=== PATIENT | female | born 1965 | race Hispanic/Latino ===

== ENCOUNTER 2016-10-26 15:12 | Emergency (ER) | payer MEDICAID, OTHER ==
[~2016-10-26] VITALS: Ht 144.8 cm; Wt 79.4 kg
[~2016-10-26 15:12] MED LIST: AC500T; CHOLESTOFF; GABA-488 PO; HYDR-3714 PO; HYDR1TAB PO; MELO-198 PO; METH4TAB PO; METH5TAB41 PO; NAPR-243 PO; TRAMADOL; TRM50T PO
--- OUTSIDE RECORDS SUMMARY | 2016-10-26 15:18 | XMS REPORT | Continuity of Care Document ---
Author Author Interface Organization Interface Address Unknown Phone Unavailable Problems Problem Status Onset Date Classification Date Reported Comments Source Medications Medication Details Route Status Patient Instructions Ordering Provider Order Date Source Allergies, Adverse Reactions, Alerts Substance Category Reaction Severity Reaction type Status Date Reported Comments Source NKA Datatype(AL1.2)-Drug Allergy Active 08/10/2009 [facility] Immunizations Immunization Date Given Site Status Last Updated Comments Source Results Order Name Results Value Reference Range Date Interpretation Comments Source Vital Signs Vital Sign Value Date Comments Source Encounters Location Location Details Encounter Type Encounter Number Reason For Visit Attending Provider ADM Date DC Date Status [id number] 08/10/2009 Active [facility] Procedures Procedure Code Date Perfomer Comments Source
[2016-10-26] MEDS ORDERED: ADAL10SY SQ (15:59)
[2016-10-26] MEDS ORDERED: TETRACAINE 0.5% OPHTH SOLN 5 ML BTL OP ONE (16:45)
--- NOTE | 2016-10-26 16:54 | Diagnostic Imaging Report ---
INDICATION: Back pain post fall. TECHNIQUE: AP and lateral views of the lumbar spine are obtained. FINDINGS: The lumbar vertebrae are normal in height and alignment. There is no fracture or subluxation. There is no significant disc space narrowing. IMPRESSION: No acute bony abnormality in the lumbar spine. Dictated by: Dictated on workstation # [id number]
[2016-10-26 17:05] LABS: BILIRUBIN,URINE NEGATIVE (NEGATIVE); KETONES,URINE NEGATIVE (NEGATIVE); LEUKOCYTE ESTERASE ,URINE NEGATIVE (NEGATIVE); NITRITE,URINE NEGATIVE (NEGATIVE); PH,URINE 7 (5-9); PROTEIN,URINE NEGATIVE (NEGATIVE); UROBILINOGEN,URINE NORMAL (NORMAL)
--- NOTE | 2016-10-26 17:08 | ED Back Pain ---
General Chief Complaint: Back Problems Stated Complaint: KIDNEY,BACK PAIN Nursing Triage Note: PT CO OF BACK PAIN FROM FALL APPROX 3 WEEKS AGO LOW BACK Nursing Sepsis Screen: No Definite Risk History of Present Illness Time Seen by Provider: 16:30 Initial Comments Initial evaluation for low back pain. Starts in the lower lumbar region and into the SI joints bilaterally. She denies any falls reports it's been present for approximately 3 week. In addition she has bilateral eye pain, with some varying changes in visual acuity. She has not seen an rubber goods inspector tester for many years. She does not wear glasses. She lives in [place], and is here visiting her daughter. Location: Lumbar Spine Timing/Duration: Changing Over Time Severity: Mild (5/10) Pain/Injury Location: Back Modifying Factors: Improves With Immobilization, Improves With Rest Associated Symptoms: muscle spasmsNo numbness in legs/feet, No tingling in legs/feet, No sensory/motor loss, lower back painNo loss of bladder control, No loss of bowel control Allergies and Home Medications Allergies Coded Allergies: No Known Drug Allergies (Unverified , 04/05/09) Home Medications Adalimumab 10 Mg/0.2 Ml Syringekit 10 MG SQ Q 2 WEEKS (Reported) Naproxen 500 Mg Tablet #40 500 MG PO BID WITH MEALS PRN PRN PAIN Prescribed by: SHELTON ALVARENGA on 10/26/16 1736 Tramadol HCl 50 Mg Tablet #12 50 MG PO Q8H Prescribed by: SHELTON ALVARENGA on 10/26/16 1715 Constitutional: no symptoms reported see HPI EENTM: blurred vision eye pain see HPINo double vision, No tearing, No vision loss Respiratory: no symptoms reported see HPI Cardiovascular: no symptoms reported see HPI Gastrointestinal: no symptoms reported see HPI Genitourinary: no symptoms reported see HPI : No Musculoskeletal: see HPI back pain Skin: no symptoms reported see HPI Psychiatric/Neurological: No Symptoms Reported See HPI All Other Systems Reviewed Negative Unless Noted: Yes Past Esvgsyn-Xgbfmn-Zkhxbh Hx Patient Social History Alcohol Use: Denies Use Recreational Drug Use: No Smoking Status: Never a Smoker Recent Foreign Travel: No Contact w/Someone Who Travel: No Recent Infectious Disease Expo: No Recent Hopitalizations: No Surgeries HX Surgeries: Yes Surgeries: Section Respiratory Hx Respiratory Disorders: No Cardiovascular Hx Cardiac Disorders: No Neurological Hx Neurological Disorders: No Genitourinary Hx Genitourinary Disorders: No Gastrointestinal Hx Gastrointestinal Disorders: No Musculoskeletal Hx Musculoskeletal Disorders: Yes Musculoskeletal Disorders: Arthritis Endocrine Hx Endocrine Disorders: No Reviewed Nursing Assessment Reviewed/Agree w Nursing PMH: Yes Physical Exam Vital Signs Vital Sign - Last 12Hours 10/26/16 15:45 Temp 97.9 Pulse 81 Resp 18 B/P 101/62 Pulse Ox 97 Capillary Refill : Less Than 3 Seconds General Appearance: No Apparent Distress WD/WN Other (no headache) HEENT: TMs Normal Normal ENT Inspection Pharynx Normal PhotophobiaNo Scleral Icterus (L), No Scleral Icterus (R) Neck: Full Range of Motion Normal Inspection Non Tender Supple Cardiovascular: Regular Rate, Rhythm No Edema No JVD No Murmur Respiratory: Chest Non Tender Lungs Clear Gastrointestinal: Normal Bowel Sounds No Organomegaly No Pulsatile Mass Non Tender Soft Back: Normal Inspection No CVA Tenderness Decreased Range of Motion Muscle Spasm Other (power L4 to S1 V/V, neurovascular status intact bilateral lower extremities) Extremity: Normal Capillary Refill Normal Inspection Neurologic/Psychiatric: Alert Oriented x3 No Motor/Sensory Deficits Normal Mood/Affect bed laster II-XII Norm as Tested (grossly intact) Skin: Normal Color Warm/Dry Lymphatic: No Adenopathy Progress/Results/Core Measures Results/Orders Lab Results Laboratory Tests Test 10/26/16 16:50 Range/Units Ur Tricyclic Antidepressants Screen NEGATIVE NEGATIVE Urine Amphetamines Screen NEGATIVE NEGATIVE Urine Bacteria NEGATIVE /HPF Urine Barbiturates Screen NEGATIVE NEGATIVE Urine Benzodiazepines Screen NEGATIVE NEGATIVE Urine Bilirubin NEGATIVE NEGATIVE Urine Cannabinoids Screen NEGATIVE NEGATIVE Urine Casts NONE /LPF Urine Clarity CLEAR Urine Cocaine Screen NEGATIVE NEGATIVE Urine Color YELLOW Urine Crystals NONE /LPF Urine Culture Indicated NO Urine Glucose (UA) NEGATIVE NEGATIVE Urine Ketones NEGATIVE NEGATIVE Urine Leukocyte Esterase NEGATIVE NEGATIVE Urine Methadone Screen NEGATIVE NEGATIVE Urine Methamphetamines Screen NEGATIVE NEGATIVE Urine Mucus NEGATIVE /LPF Urine Nitrite NEGATIVE NEGATIVE Urine Opiates Screen NEGATIVE NEGATIVE Urine Oxycodone Screen NEGATIVE NEGATIVE Urine Phencyclidine Screen NEGATIVE NEGATIVE Urine Propoxyphene Screen NEGATIVE NEGATIVE Urine Protein NEGATIVE NEGATIVE Urine RBC RARE /HPF Urine RBC (Auto) NEGATIVE NEGATIVE Urine Specific [place] 1.010 L 1.016-1.022 Urine Squamous Epithelial Cells 5-10 /HPF Urine Urobilinogen NORMAL NORMAL MG/DL Urine WBC RARE /HPF Urine pH 7 5-9 My Orders Orders-SHELTON ALVARENGA PREDATORY HUNTER Tetracaine 0.5% Ophth Soln (Tetravisc 0. (10/26/16 16:45) Drug Screen Stat (Urine) (10/26/16 16:54) Ua Culture If Indicated (10/26/16 16:54) Tramadol Tablet (Ultram Tablet) (10/26/16 17:13) Medications Given in ED Current Medications Medications Dose Ordered Sig/Bret Route Start Time Stop Time Status Last Admin Dose Admin Tetracaine HCl 1 OR 2 DROPS INTO AFFEC... ONCE ONCE OP 10/26/16 16:45 10/26/16 16:46 DC 10/26/16 16:46 2 ML Vital Signs/I&O Vital Sign - Last 12Hours 10/26/16 10/26/16 15:45 17:45 Temp 97.9 Pulse 81 81 Resp 18 18 B/P 101/62 Pulse Ox 97 97 Blood Pressure Mean: 75 Progress Note : Time: 16:30 Progress Note Instilled Tetracaine OU, approximately 10 min later: [place] Pen IOP OD 29 and OS 27. Discussed the findings of her IOP and stressed the importance of following up with Dr. Parks tomorrow. UDS and UA negative. Diagnostic Imaging Diagonstic Imaging: Xray Plain Films/CT/US/NM/MRI: other (L spine) Comments NAME: ARACELY BALDERAS [facility] REC#: [id number] PT STATUS: REG ER : 1965 PHYSICIAN: LISSETTE RICHARDS MD ADMIT DATE: 10/26/16/ER Draft Date of Exam:10/26/16 LUMBAR SPINE - 2-3 VIEWS INDICATION: Back pain post fall. TECHNIQUE: AP and lateral views of the lumbar spine are obtained. FINDINGS: The lumbar vertebrae are normal in height and alignment. There is no fracture or subluxation. There is no significant disc space narrowing. IMPRESSION: No acute bony abnormality in the lumbar spine. Dictated on workstation # [id number] Dict: 10/26/161649 Trans: 10/26/161653 [id number] Interpreted by: KEENAN MELENDREZ MD Electronically signed by: Reviewed: Reviewed by Me Departure Impression Impression: Primary Impression: Back pain Qualified Code: M54.5 - Low back pain Additional Impression: Glaucoma Qualified Code: H40.10X1 - Unspecified open-angle glaucoma, mild stage Disposition: HOME, SELF-CARE Condition: Stable Departure-Patient Inst. Decision time for Depature: 17:10 Referrals: NO,LOCAL PHYSICIAN (PCP/Family) Primary Care Physician Patient Instructions: Glaucoma (DC), Low Back Pain (DC) Add. Discharge Instructions: All discharge instructions reviewed with patient and/or family. Voiced understanding. See Dr. Parks at 11:15 Sun 3 [address], Return to emergency room for increased eye pain, changes in vision, or new symptoms. Scripts Naproxen (Naprosyn)500 Mg [id number] Mg PO BID WITH MEALS PRN PAIN #40 TAB Ref 0 Prov:SHELTON ALVARENGA 10/26/16 Tramadol HCl 50 Mg [id number] Mg PO Q8H Pain #12 TAB Ref 0 Prov:SHELTON ALVARENGA 10/26/16 Copy Copies To 1: LOREN GRIGGS OD, AMY ARNP Oct 26, 2016 17:08
[2016-10-26] MEDS ORDERED: TRAM50TA2 PO (17:15)
[2016-10-26 17:20] LABS: WBC,URINE RARE /HPF
[2016-10-26] MEDS ORDERED: NAPR500T PO (17:36)
[2016-10-26 17:45] VITALS: BP 101/62
== END 2016-10-26 17:45 | disposition home or self-care (01) ==
LOC: EDUNIT# 15:12 → ER 15:14
DX: M54.5 Low back pain (principal); H40.9 Unspecified glaucoma
CPT/HCPCS: 72100; 80306; 81000; 99282

== ENCOUNTER 2020-08-09 13:42 | Emergency (ER) | payer MEDICAID ==
[~2020-08-09] VITALS: Ht 162.5 cm; Wt 88.6 kg
[~2020-08-09 13:42] MED LIST changes: +ADAL10SY SQ; +NAPR-1071 PO
--- NOTE | 2020-08-09 14:13 | ED General ---
General Chief Complaint: General Problems/Pain Stated Complaint: LEG AND HAND PAIN Source of Information: Patient Exam Limitations: No Limitations History of Present Illness Date Seen by Provider: Aug 09, 2020 Time Seen by Provider: 14:00 Initial Comments To ER by EMS from home with reports of right wrist right shoulder left ribs and left knee pain. This pain has been chronic but worse than usual for about 3 days. [facility] and takes some sort of cream and meloxicam. She states is not helping much. States her pain is intolerable.States that her right wrist swells up sometimes but is not particularly swollen today. Timing/Duration: 1-2 Days Severity: Moderate Associated Systoms: No Cough, No Headaches, No Malaise, No Nausea/Vomiting Allergies and Home Medications Allergies Coded Allergies: No Known Drug Allergies (Unverified , 04/05/09) Home Medications Adalimumab 10 Mg/0.2 Ml Syringekit, 10 MG SQ Q 2 WEEKS, (Reported) Naproxen 500 Mg Tablet, 500 MG PO BID WITH MEALS PRN for PAIN Prescribed by: SHELTON ALVARENGA on 10/26/161735 Tramadol HCl 50 Mg Tablet, 50 MG PO Q8H Prescribed by: SHELTON ALVARENGA on 10/26/16 1715 Patient Home Medication List Home Medication List Reviewed: Yes Review of Systems Review of Systems Constitutional: see HPI; No chills, No fever EENTM: see HPI Respiratory: no symptoms reported Cardiovascular: no symptoms reported Genitourinary: no symptoms reported Musculoskeletal: no symptoms reported Skin: see HPI Psychiatric/Neurological: No Symptoms Reported Hematologic/Lymphatic: No Symptoms Reported Past Zylanst-Bxflub-Hfbduh Hx Patient Social History Recent Hopitalizations: No Past Medical History Section Arthritis Physical Exam Vital Signs Vital Signs - First Documented 08/09/20 13:46 Temp 36.8 Pulse 100 Resp 18 B/P (MAP) 125/95 (105) Pulse Ox 94 O2 Delivery Room Air Capillary Refill : Height, Weight, BMI Height: 4'9" Weight: 175lbs. oz. 79.878651gr; BMI Method:Stated General Appearance: No Apparent Distress, WD/WN, Other (Tearful) Eyes: Bilateral Eye Normal Inspection, Bilateral Eye PERRL, Bilateral Eye EOMI Respiratory: No Accessory Muscle Use, No Respiratory Distress Cardiovascular: Regular Rate, Rhythm, Normal Peripheral Pulses Gastrointestinal: Normal Bowel Sounds, Non Tender, Soft Extremity: Normal Capillary Refill, Normal Inspection Neurologic/Psychiatric: Alert, Oriented x3 Skin: Normal Color, Warm/Dry Progress/Results/Core Measures Suspected Sepsis SIRS Temperature: Pulse: Respiratory Rate: Laboratory Tests 08/09/20 14:02: White Blood Count 8.0 Blood Pressure / Mean: Laboratory Tests 08/09/20 14:02: Creatinine 0.62, Platelet Count 309, Total Bilirubin 0.5 Results/Orders Lab Results Laboratory Tests Test 08/09/20 14:02 Range/Units White Blood Count 8.0 4.3-11.0 10^3/uL Red Blood Count 4.73 3.80-5.11 10^6/uL Hemoglobin 13.5 11.5-16.0 g/dL Hematocrit 44 35-52 % Mean Corpuscular Volume 92 80-99 fL Mean Corpuscular Hemoglobin 29 25-34 pg Mean Corpuscular Hemoglobin Concent 31 L 32-36 g/dL Red Cell Distribution Width 15.9 H 10.0-14.5 % Platelet Count 309 130-400 10^3/uL Mean Platelet Volume 10.2 9.0-12.2 fL Immature Granulocyte % (Auto) 1 % Neutrophils (%) (Auto) 80 H 42-75 % Lymphocytes (%) (Auto) 15 12-44 % Monocytes (%) (Auto) 3 0-12 % Eosinophils (%) (Auto) 1 0-10 % Basophils (%) (Auto) 0 0-10 % Neutrophils # (Auto) 6.4 1.8-7.8 10^3/uL Lymphocytes # (Auto) 1.2 1.0-4.0 10^3/uL Monocytes # (Auto) 0.2 0.0-1.0 10^3/uL Eosinophils # (Auto) 0.1 0.0-0.3 10^3/uL Basophils # (Auto) 0.0 0.0-0.1 10^3/uL Immature Granulocyte # (Auto) 0.1 0.0-0.1 10^3/uL Erythrocyte Sedimentation Rate 42 H 0-30 MM/HR Sodium Level 139 135-145 MMOL/L Potassium Level 3.7 3.6-5.0 MMOL/L Chloride Level 104 98-107 MMOL/L Carbon Dioxide Level 25 21-32 MMOL/L Anion Gap 10 5-14 MMOL/L Blood Urea Nitrogen 7 7-18 MG/DL Creatinine 0.62 0.60-1.30 MG/DL Estimat Glomerular Filtration Rate > 60 BUN/Creatinine Ratio 11 Glucose Level 119 H 70-105 MG/DL Calcium Level 8.4 L 8.5-10.1 MG/DL Corrected Calcium 9.0 8.5-10.1 MG/DL Total Bilirubin 0.5 0.1-1.0 MG/DL Aspartate Amino Transf (AST/SGOT) 16 5-34 U/L Alanine Aminotransferase (ALT/SGPT) 14 0-55 U/L Alkaline Phosphatase 86 40-136 U/L C-Reactive Protein High Sensitivity 7.70 H 0.00-0.50 MG/DL Total Protein 6.8 6.4-8.2 GM/DL Albumin 3.2 3.2-4.5 GM/DL My Orders Orders - SIVA LA APRN Wrist, Right, 3 Views Or More (08/09/20 14:07) Shoulder, Right, 3 Views (08/09/20 14:07) Chest 1 View, Ap/Pa Only (08/09/20 14:07) Knee, Left, 3 Views (08/09/20 14:07) Erythrocyte Sedimentation Rate (08/09/20 14:07) Hs C Reactive Protein (08/09/20 14:07) Cbc With Automated Diff (08/09/20 14:07) Comprehensive Metabolic Panel (08/09/20 14:07) Anti-Nuclear Ab (Deepail) Analyzer (08/09/20 14:07) Ed Iv/Invasive Line Start (08/09/20 14:07) Fentanyl Injection (Sublimaze Injection (08/09/20 14:15) Ketorolac Injection (Toradol Injection) (08/09/20 14:15) Medications Given in ED Current Medications Medications Dose Ordered Sig/Bret Route Start Time Stop Time Status Last Admin Dose Admin Fentanyl Citrate 50 mcg ONCE ONCE IVP 08/09/20 14:15 08/09/20 14:16 DC 08/09/20 14:48 50 MCG Ketorolac Tromethamine 15 mg ONCE ONCE IVP 08/09/20 14:15 08/09/20 14:16 DC 08/09/20 14:49 15 MG Vital Signs/I&O 08/09/20 13:46 Temp 36.8 Pulse 100 Resp 18 B/P (MAP) 125/95 (105) Pulse Ox 94 O2 Delivery Room Air Capillary Refill : Departure Impression Primary Impression: Inflammatory arthropathy Disposition: 01 HOME, SELF-CARE Condition: Stable Departure-Patient Inst. Decision time for Depature: 14:51 Referrals: NO,LOCAL PHYSICIAN (PCP/Family) Primary Care Physician Patient Instructions: NO INSTRUCTIONS GIVEN Add. Discharge Instructions: 1. Medication as directed 2. Fill your prescriptions at [facility] 3. [facility] may need to prescribe some long-term medications to help manage this pain. All discharge instructions reviewed with patient and/or family. Voiced understanding. Scripts Methylprednisolone (Methylprednisolone Dose Pack) 4 Mg Tab.ds.pk 4 MG PO UD for 6 Days, #21 PKG PER DOSE PACK INSTRUCTIONS Prov: SIVA LA APRN 08/09/20 Hydrocodone/Acetaminophen (Hydrocodone-Acetamin 5-325 mg) 1 Each Tablet 1 EACH PO Q4H PRN for PAIN-MODERATE (5-7), #20 TAB Prov: SIVA LA APRN 08/09/20 SIVA LA APRN Aug 09, 2020 14:13
[2020-08-09] MEDS ORDERED: KETOROLAC 30 MG/ML VIAL IVP ONE (14:15)
[2020-08-09] MEDS ORDERED: fentaNYL INJECTION 100 MCG/2 ML AMP IVP ONE (14:15)
[2020-08-09 14:19] LABS: BASOPHILS % (AUTO) 0 % (0-10); EOSINOPHILS # (AUTO) 0.1 10^3/uL (0.0-0.3); EOSINOPHILS % (AUTO) 1 % (0-10); HEMATOCRIT 44 % (35-52); HEMOGLOBIN 13.5 g/dL (11.5-16.0); LYMPHOCYTES # (AUTO) 1.2 10^3/uL (1.0-4.0); LYMPHOCYTES % (AUTO) 15 % (12-44); MEAN CORPUSCULAR HEMOGLOBIN 29 pg (25-34); MEAN CORPUSCULAR HGB CONC 31 g/dL (32-36); MEAN CORPUSCULAR VOLUME 92 fL (80-99); MEAN PLATELET VOLUME 10.2 fL (9.0-12.2); MONOCYTES # (AUTO) 0.2 10^3/uL (0.0-1.0); MONOCYTES % (AUTO) 3 % (0-12); NEUTROPHILS # (AUTO) 6.4 10^3/uL (1.8-7.8); NEUTROPHILS % (AUTO) 80 % (42-75); PLATELET COUNT 309 10^3/uL (130-400)
[2020-08-09 14:32] LABS: ALBUMIN 3.2 GM/DL (3.2-4.5); CHLORIDE 104 MMOL/L (98-107); POTASSIUM 3.7 MMOL/L (3.6-5.0)
[2020-08-09 14:33] LABS: SODIUM 139 MMOL/L (135-145)
[2020-08-09 14:34] LABS: CALCIUM 8.4 MG/DL (8.5-10.1)
[2020-08-09 14:35] LABS: GLUCOSE 119 MG/DL (70-105); TOTAL PROTEIN 6.8 GM/DL (6.4-8.2)
[2020-08-09 14:36] LABS: CARBON DIOXIDE 25 MMOL/L (21-32)
[2020-08-09 14:37] LABS: BILIRUBIN,TOTAL 0.5 MG/DL (0.1-1.0)
[2020-08-09 14:38] LABS: ALKALINE PHOSPHATASE 86 U/L (40-136)
[2020-08-09 14:39] LABS: CREATININE SERUM 0.62 MG/DL (0.60-1.30); GFR ESTIMATED > 60
[2020-08-09 14:40] LABS: BUN/CREATININE RATIO 11
[2020-08-09 14:42] LABS: ALANINE AMINOTRANSFERASE 14 U/L (0-55); ERYTHROCYTE SEDIMENTATION RATE 42 MM/HR (0-30)
--- NOTE | 2020-08-09 14:42 | Diagnostic Imaging Report ---
INDICATION: Right shoulder pain post injury. AP, oblique, and transscapular views the right shoulder are obtained. No fracture or acute bony abnormality is seen. The glenohumeral joint and AC joint appear unremarkable. IMPRESSION: Negative right shoulder. Dictated by: Dictated on workstation # [id number]
--- NOTE | 2020-08-09 14:43 | Diagnostic Imaging Report ---
INDICATION: Left knee pain. AP, oblique, and lateral views of the left knee are obtained. No fracture or acute bony abnormality is seen. There is a small left knee joint effusion. IMPRESSION: No fracture or acute bony abnormality. Small left knee joint effusion. Dictated by: Dictated on workstation # [id number]
--- NOTE | 2020-08-09 14:44 | Diagnostic Imaging Report ---
INDICATION: Right wrist swelling. AP, oblique, and lateral views of the right wrist are obtained. No fracture or acute bony abnormality is seen. There is joint space narrowing of the radiocarpal joint. IMPRESSION: Degenerative findings with no acute bony abnormality of the right wrist. Dictated by: Dictated on workstation # [id number]
[2020-08-09] MEDS ORDERED: METH4TAB10 PO (14:52)
[2020-08-09] MEDS ORDERED: ACHD5005 PO (14:52)
--- NOTE | 2020-08-09 14:55 | Diagnostic Imaging Report ---
INDICATION: Right-sided chest pain with inspiration FINDINGS: The lungs are clear. There is no effusion or pneumothorax. No rib fracture, deformity or bony destructive process. No failure pattern. IMPRESSION: Normal frontal chest. Dictated by: Dictated on workstation # [id number]
[2020-08-09] MEDS ORDERED: dexAMETHasone 6 MG TAB (DECADRON) PO SCH (15:00)
--- NOTE | 2020-08-09 15:38 | NUR ---
ATTEMPT TO CALL NUMBERS ON CHART NOT RIGHT NUMBERS CALLED LOGISTICIAN DEPT FOR CALL BACK NUMBER FOR THEM
--- NOTE | 2020-08-09 15:39 | NUR ---
NUMBER BY [facility] DEPT NOT WORKING.
[2020-08-09] MEDS ORDERED: HYDROcodone/APAP 5 MG/325 MG (LORTAB) TAB PO ONE (15:45)
--- NOTE | 2020-08-09 16:04 | NUR ---
PATIENT CALLED ON HER CELL PHONE INFOMRED MALE WHO ANSWERED PHONE INFORMED PATIENT WAS COMING HOME AND NEEDED TO GO TO [facility] TO GET HER MEDS VOICED THEY WOULD. MALE REPORTED DAUGHTER WAS IN JOIN
[2020-08-09 16:11] VITALS: BP 135/98
== END 2020-08-09 15:52 | disposition home or self-care (01) ==
LOC: EDUNIT# 13:42 → ER 13:44
DX: M12.831 Other specific arthropathies, not elsewhere classified, right wrist (principal); M12.811 Other specific arthropathies, not elsewhere classified, right shoulder; M12.862 Other specific arthropathies, not elsewhere classified, left knee
CPT/HCPCS: 36415; 71045; 73030; 73110; 73562; 80053; 85025; 85652; 86038; 86039; 86141

== ENCOUNTER 2020-10-26 10:56 | Emergency (ER) | payer MEDICAID ==
[~2020-10-26] VITALS: Ht 125 cm; Wt 90.7 kg
[~2020-10-26 10:56] MED LIST changes: +ACHD5005 PO; +METH4TAB10 PO
[2020-10-26] MEDS ORDERED: fentaNYL INJECTION 100 MCG/2 ML AMP IVP ONE (11:45)
[2020-10-26] MEDS ORDERED: ONDANSETRON 4 MG/2 ML (SDV) Z0FRAN IVP ONE (11:45)
[2020-10-26 11:55] LABS: BASOPHILS % (AUTO) 0 % (0-10); EOSINOPHILS % (AUTO) 0 % (0-10); HEMATOCRIT 47 % (35-52); HEMOGLOBIN 14.7 g/dL (11.5-16.0); LYMPHOCYTES % (AUTO) 15 % (12-44); MEAN CORPUSCULAR HEMOGLOBIN 29 pg (25-34); MEAN CORPUSCULAR HGB CONC 32 g/dL (32-36); MEAN CORPUSCULAR VOLUME 91 fL (80-99); MEAN PLATELET VOLUME 10.8 fL (9.0-12.2); MONOCYTES # (AUTO) 0.3 10^3/uL (0.0-1.0); MONOCYTES % (AUTO) 4 % (0-12); NEUTROPHILS # (AUTO) 5.6 10^3/uL (1.8-7.8); NEUTROPHILS % (AUTO) 80 % (42-75); PLATELET COUNT 236 10^3/uL (130-400); WHITE BLOOD COUNT 6.9 10^3/uL (4.3-11.0)
[2020-10-26 12:05] LABS: ALBUMIN 3.6 GM/DL (3.2-4.5); CHLORIDE 101 MMOL/L (98-107); POTASSIUM 3.2 MMOL/L (3.6-5.0); SODIUM 138 MMOL/L (135-145)
[2020-10-26 12:06] LABS: CALCIUM 8.5 MG/DL (8.5-10.1)
[2020-10-26 12:07] LABS: GLUCOSE 147 MG/DL (70-105)
[2020-10-26 12:08] LABS: TOTAL PROTEIN 7.3 GM/DL (6.4-8.2)
[2020-10-26 12:09] LABS: BILIRUBIN,TOTAL 0.5 MG/DL (0.1-1.0); CARBON DIOXIDE 27 MMOL/L (21-32)
[2020-10-26 12:11] LABS: ALKALINE PHOSPHATASE 127 U/L (40-136); CREATININE SERUM 0.69 MG/DL (0.60-1.30); GFR ESTIMATED > 60
[2020-10-26 12:12] LABS: BUN/CREATININE RATIO 9
[2020-10-26 12:14] LABS: ALANINE AMINOTRANSFERASE 24 U/L (0-55); MAGNESIUM 2.2 MG/DL (1.6-2.4)
[2020-10-26] MEDS ORDERED: KCL 10 MEQ TAB (MICRO K) PO ONE (12:30)
[2020-10-26 12:35] LABS: TSH (THYROID ANALYZER) 1.96 UIU/ML (0.35-4.94)
--- NOTE | 2020-10-26 13:39 | Diagnostic Imaging Report ---
PROCEDURE: CT head without contrast. TECHNIQUE: Multiple contiguous axial images were obtained through the brain without the use of intravenous contrast. Auto Exposure Controls were utilized during the CT exam to meet ALARA standards for radiation dose reduction. INDICATION: Severe headache. COMPARISON: No prior studies are available for comparison. FINDINGS: Ventricles and sulci are within normal limits. No sulcal effacement or midline shift is detected. No acute intra-axial or extra-axial hemorrhage is detected. Cisterns are patent. Visualized paranasal sinuses are clear. IMPRESSION: No acute intracranial process is detected. Dictated by: Dictated on workstation # [id number]
[2020-10-26] MEDS ORDERED: KETOROLAC 30 MG/ML VIAL IVP ONE (14:00)
[2020-10-26 14:15] LABS: ERYTHROCYTE SEDIMENTATION RATE 41 MM/HR (0-30)
--- NOTE | 2020-10-26 15:05 | ED Headache ---
General Chief Complaint: Head/Cervical Problems Stated Complaint: FROST,N/V,BODY ACHES Nursing Triage Note: Ambulatory to ED. Pt reports the worst headache of life that has been intermittent over the last two weeks. Pt reports pain is unbareable. Pt reports taking Tramadol on an empty stomach this morning and then felt nauseated. Dr. German performed neuro exam during assessment. Language line used to communicate with patient during assessment. Nursing Sepsis Screen: No Definite Risk Source: patient, vp director of finance Exam Limitations: language barrier History of Present Illness Date Seen by Provider: Oct 26, 2020 Time Seen by Provider: 11:00 Initial Comments This 55-year-old woman presents to the emergency room with primary complaint of severe headache. Was performed with the assistance of phone vp director of finance. She has had intermittent headache for about 2 weeks. She has had some mild nausea as well associated with taking a tramadol this morning on an empty stomach. She denies fever. She denies any Covid contacts. She has not had any vomiting or diarrhea. She does state this is the worst headache she has ever experienced and she is intermittently tearful. She also complains of eye discharge and intermittent blurry vision with reading. She Has history of rheumatoid arthritis. Allergies and Home Medications Allergies Coded Allergies: No Known Drug Allergies (Unverified , 04/05/09) Home Medications Adalimumab 10 Mg/0.2 Ml Syringekit, 10 MG SQ Q 2 WEEKS, (Reported) Hydrocodone/Acetaminophen 1 Each Tablet, 1 EACH PO Q4H PRN for PAIN-MODERATE (5- 7) Prescribed by: SIVA LA on 08/09/20 1454 Methylprednisolone 4 Mg Tab.ds.pk, 4 MG PO UD PER DOSE PACK INSTRUCTIONS Prescribed by: SIVA LA on 08/09/20 1452 Naproxen 500 Mg Tablet, 500 MG PO BID WITH MEALS PRN for PAIN Prescribed by: SHELTON ALVARENGA on 10/26/16 1736 Omeprazole 20 Mg Capsule.dr, 20 MG PO DAILY Prescribed by: GIGI DAVENPORT on 10/26/20 163 Ondansetron 4 Mg Tab.rapdis, 4 MG SL Q4H PRN for NAUSEA/VOMITING Prescribed by: GIGI DAVENPORT on 10/26/20 163 Tramadol HCl 50 Mg Tablet, 50 MG PO Q8H Prescribed by: SHELTON ALVARENGA on 10/26/16 1715 Patient Home Medication List Home Medication List Reviewed: Yes Review of Systems Review of Systems Constitutional: no symptoms reported Eyes: Blurred Vision Ears, Nose, Mouth, Throat: no symptoms reported Respiratory: no symptoms reported Cardiovascular: no symptoms reported Gastrointestinal: see HPI Genitourinary: no symptoms reported : No Musculoskeletal: no symptoms reported Skin: no symptoms reported Psychiatric/Neurological: See HPI Past Bbszlpb-Nqkgff-Lcefuh Hx Past Med/Social Hx: Reviewed Nursing Past Med/Soc Hx Patient Social History Alcohol Use: Denies Use 2nd Hand Smoke Exposure: No Recent Infectious Disease Expo: No Recent Hopitalizations: No Past Medical History Surgeries: Yes Section Respiratory: No Cardiac: No Neurological: No : No Gastrointestinal: No Musculoskeletal: Yes Arthritis, Rheumatoid Arthritis Endocrine: No HEENT: No Cancer: No Psychosocial: No Blood Disorders: No Physical Exam Vital Signs Vital Signs - First Documented 10/26/20 11:15 Temp 36.9 Pulse 91 Resp 20 B/P (MAP) 142/119 (127) Pulse Ox 94 O2 Delivery Room Air Capillary Refill : Less Than 3 Seconds Height, Weight, BMI Height: 4'9" Weight: 175lbs. oz. 79.839516mc; 58.00 BMI Method:Stated General Appearance: WD/WN, moderate distress HEENT: PERRL/EOMI, normal ENT inspection, TMs normal, pharynx normal Neck: normal inspection Cardiovascular: regular rate, rhythm, no edema, no murmur Respiratory: lungs clear, normal breath sounds, no respiratory distress Gastrointestinal: non tender, soft Extremities: normal inspection, no pedal edema Psychiatric: alert, oriented x 3 Crainal Nerves: normal hearing, normal speech, other (Patient has a difficulty tracking my finger with her eyes in either direction. Presumably this is due to difficulty concentrating. She also has difficulty following instructions for the [id number]-wk-erdc test but eventually performs it with satisfactory coordination. No other focal deficits were appreciated.) Coordination/Gait: normal finger to nose, normal gait Motor/Sensory: no motor deficit, no sensory deficit Skin: normal color, warm/dry Progress/Results/Core Measures Results/Orders Lab Results Laboratory Tests Test 10/26/20 10:59 10/26/20 11:41 10/26/20 11:48 Range/Units Coronavirus 2019 ([facility]) Negative Negative White Blood Count 6.9 4.3-11.0 10^3/uL Red Blood Count 5.12 H 3.80-5.11 10^6/uL Hemoglobin 14.7 11.5-16.0 g/dL Hematocrit 47 35-52 % Mean Corpuscular Volume 91 80-99 fL Mean Corpuscular Hemoglobin 29 25-34 pg Mean Corpuscular Hemoglobin Concent 32 32-36 g/dL Red Cell Distribution Width 16.7 H 10.0-14.5 % Platelet Count 236 130-400 10^3/uL Mean Platelet Volume 10.8 9.0-12.2 fL Immature Granulocyte % (Auto) 1 % Neutrophils (%) (Auto) 80 H 42-75 % Lymphocytes (%) (Auto) 15 12-44 % Monocytes (%) (Auto) 4 0-12 % Eosinophils (%) (Auto) 0 0-10 % Basophils (%) (Auto) 0 0-10 % Neutrophils # (Auto) 5.6 1.8-7.8 10^3/uL Lymphocytes # (Auto) 1.0 1.0-4.0 10^3/uL Monocytes # (Auto) 0.3 0.0-1.0 10^3/uL Eosinophils # (Auto) 0.0 0.0-0.3 10^3/uL Basophils # (Auto) 0.0 0.0-0.1 10^3/uL Immature Granulocyte # (Auto) 0.0 0.0-0.1 10^3/uL Erythrocyte Sedimentation Rate 41 H 0-30 MM/HR Sodium Level 138 135-145 MMOL/L Potassium Level 3.2 L 3.6-5.0 MMOL/L Chloride Level 101 98-107 MMOL/L Carbon Dioxide Level 27 21-32 MMOL/L Anion Gap 10 5-14 MMOL/L Blood Urea Nitrogen 6 L 7-18 MG/DL Creatinine 0.69 0.60-1.30 MG/DL Estimat Glomerular Filtration Rate > 60 BUN/Creatinine Ratio 9 Glucose Level 147 H 70-105 MG/DL Calcium Level 8.5 8.5-10.1 MG/DL Corrected Calcium 8.8 8.5-10.1 MG/DL Magnesium Level 2.2 1.6-2.4 MG/DL Total Bilirubin 0.5 0.1-1.0 MG/DL Aspartate Amino Transf (AST/SGOT) 21 5-34 U/L Alanine Aminotransferase (ALT/SGPT) 24 0-55 U/L Alkaline Phosphatase 127 40-136 U/L C-Reactive Protein High Sensitivity 5.59 H 0.00-0.50 MG/DL Total Protein 7.3 6.4-8.2 GM/DL Albumin 3.6 3.2-4.5 GM/DL TSH Cord Testing 1.96 0.35-4.94 UIU/ML Micro Results Microbiology 10/26/20 Influenza Types A,B Antigen ([facility]) - Final, Complete My Orders Orders - GIGI GERMAN MD Influenza A And B Antigens (10/26/20 10:59) Covid 19 Inhouse Test (10/26/20 10:59) Cbc With Automated Diff (10/26/20 11:38) Comprehensive Metabolic Panel (10/26/20 11:38) Hs C Reactive Protein (10/26/20 11:38) Magnesium (10/26/20 11:38) Thyroid Analyzer (10/26/20 11:38) Erythrocyte Sedimentation Rate (10/26/20 11:38) Ct Head Wo (10/26/20 11:38) Ondansetron Injection (Zofran Injectio (10/26/20 11:45) Fentanyl Injection (Sublimaze Injection (10/26/20 11:45) Coronavirus Sars-Cov-2 So 2018 (10/26/20 11:41) Potassium Chloride (Tablet) (Klor Con Ta (10/26/20 12:30) Ketorolac Injection (Toradol Injection) (10/26/20 14:00) Medications Given in ED Current Medications Medications Dose Ordered Sig/Bret Route Start Time Stop Time Status Last Admin Dose Admin Fentanyl Citrate 50 mcg ONCE ONCE IVP 10/26/20 11:45 10/26/20 11:46 DC 10/26/20 11:51 50 MCG Ketorolac Tromethamine 15 mg ONCE ONCE IVP 10/26/20 14:00 10/26/20 14:01 DC 10/26/20 14:27 15 MG Ondansetron HCl 4 mg ONCE ONCE IVP 10/26/20 11:45 10/26/20 11:46 DC 10/26/20 11:49 4 MG Potassium Chloride 20 meq ONCE ONCE PO 10/26/20 12:30 10/26/20 12:31 DC 10/26/20 13:26 20 MEQ Vital Signs/I&O 10/26/20 10/26/20 11:15 16:34 Temp 36.9 36.9 Pulse 91 91 Resp 20 20 B/P (MAP) 142/119 (127) 142/119 (127) Pulse Ox 94 94 O2 Delivery Room Air Blood Pressure Mean: 127 Progress Progress Note : Progress Note Rapid Covid test was negative. Rapid influenza screen was positive for influenza B. A Covid PCR test is pending. Patient was treated with fentanyl, Zofran, and Toradol with much improvement. Diagnostic Imaging Diagonstic Imaging: CT Plain Films/CT/US/NM/MRI: head Comments NAME: ARACELY BALDERAS [facility] REC#: [id number] PT STATUS: DEP ER : 1965 PHYSICIAN: GIGI GERMAN MD ADMIT DATE: 10/26/20/ER Signed Date of Exam:10/26/20 CT HEAD WO PROCEDURE: CT head without contrast. TECHNIQUE: Multiple contiguous axial images were obtained through the brain without the use of intravenous contrast. Auto Exposure Controls were utilized during the CT exam to meet ALARA standards for radiation dose reduction. INDICATION: Severe headache. COMPARISON: No prior studies are available for comparison. FINDINGS: Ventricles and sulci are within normal limits. No sulcal effacement or midline shift is detected. No acute intra-axial or extra-axial hemorrhage is detected. Cisterns are patent. Visualized paranasal sinuses are clear. IMPRESSION: No acute intracranial process is detected. Dictated by: Dictated on workstation # [id number] Dict: 10/26/20 1334 Trans: 10/26/20 1836 [id number] [id number] Interpreted by: FLORIDALMA MOLINA MD Electronically signed by: FLORIDALMA MOLINA MD 10/26/20 1836 Reviewed: Reviewed by Me Departure Impression Primary Impression: Influenza B Additional Impressions: Severe headache Nausea Disposition: 01 HOME, SELF-CARE Condition: Improved Departure-Patient Inst. Decision time for Depature: 15:04 Referrals: NO,LOCAL PHYSICIAN (PCP/Family) Primary Care Physician Patient Instructions: Flu, Headache, Adult (DC) Add. Discharge Instructions: Drink plenty of clear liquids to stay well-hydrated. For pain you may take a combination of ibuprofen 600 mg every 6 hours and Tylenol (acetaminophen) up to 1000 mg every 6 hours. Call with questions or concerns. You have a backup Covid swab that has not resulted yet. Please stay in quarantine until the result is known. This usually takes 24 to 48 hours. Return to the emergency room if you have worsening symptoms. All discharge instructions reviewed with patient and/or family. Voiced unde rstanding. Scripts Ondansetron (Ondansetron Odt) 4 Mg Tab.rapdis 4 MG SL Q4H PRN for NAUSEA/VOMITING, #10 TAB Prov: GIGI GERMAN MD 10/26/20 Omeprazole (Omeprazole) 20 Mg Capsule. 20 MG PO DAILY, #30 CAP Prov: GIGI GERMAN MD 10/26/20 GIGI GERMAN MD Oct 26, 2020 15:05
[2020-10-26] MEDS ORDERED: OMEP20CA18 PO (16:33)
[2020-10-26] MEDS ORDERED: ONDA4TAB11 SL (16:33)
[2020-10-26 16:34] VITALS: BP 142/119
== END 2020-10-26 16:34 | disposition home or self-care (01) ==
LOC: EDUNIT# 10:56 → ER 10:58
DX: J10.1 Influenza due to other identified influenza virus with other respiratory manifestations (principal); Z20.822 Contact with and (suspected) exposure to COVID-19; Z79.52 Long term (current) use of systemic steroids
CPT/HCPCS: 70450; 80053; 83735; 84443; 85025; 85652; 86141; 87804; U0002; 36415; 87635

== ENCOUNTER 2020-12-18 10:51 | Emergency (ER) | payer MEDICAID ==
[~2020-12-18] VITALS: Ht 147 cm; Wt 89.0 kg
[~2020-12-18 10:51] MED LIST changes: +OMEP20CA18 PO; +ONDA4TAB11 SL
--- NOTE | 2020-12-18 12:27 | ED General ---
General Chief Complaint: General Problems/Pain Stated Complaint: SWELLING IN LEGS AND PAIN ALL OVER BODY Nursing Triage Note: PT BROUGHT TO ED BY GRANDSON, PT DOES NOT SPEAK MALTESE, GRANDSON TRANSLATING FOR PT. PT CO OF SEVERE PAIN AND SWELLING IN SEVERAL JOINTS. PT CRYING STATES HAVING ARTHRITIS PAIN INCREASING FOR 5 DAYS. PT HAVING DIFF WALKING D/T PAIN Nursing Sepsis Screen: No Definite Risk Source of Information: Patient Exam Limitations: Language Barrier History of Present Illness Date Seen by Provider: Dec 18, 2020 Time Seen by Provider: 12:05 Initial Comments This is a well-appearing speaking 55-year-old female who presents to the ER with her grandson with complaints of generalized body pain. Language line utilized. States her generalized body pain has been present for several days now. Additionally, reports a minor fall from the couch to a carpeted floor yesterday. Currently rates her pain 10 out of 10, aches all over. Has taken Tylenol and ibuprofen with no relief. She states that she has also had intermittent rectal bleeding for a month. Bleeding started again 3 days ago, described as bright red blood. Additionally reports rectal itching. Initially thought it was a pimple that had "burst". Denies fever, chills, cough, shortness of breath, chest pain, nausea, vomiting, diarrhea, abdominal pain. Allergies and Home Medications Allergies Coded Allergies: No Known Drug Allergies (Unverified , 04/05/09) Home Medications Adalimumab 10 Mg/0.2 Ml Syringekit, 10 MG SQ Q 2 WEEKS, (Reported) Hydrocodone/Acetaminophen 1 Each Tablet, 1 EACH PO Q4H PRN for PAIN-MODERATE (5- 7) Prescribed by: SIVA LA on 08/09/20 1454 Hydrocodone/Acetaminophen 1 Each Tablet, 1 TAB PO Q6H PRN for PAIN-MODERATE (5- 7) Prescribed by: LORENA CUELLO on 12/18/20 1450 Methylprednisolone 4 Mg Tab.ds.pk, 4 MG PO UD PER DOSE PACK INSTRUCTIONS Prescribed by: SIVA LA on 08/09/20 1452 Naproxen 500 Mg Tablet, 500 MG PO BID WITH MEALS PRN for PAIN Prescribed by: SHELTON ALVARENGA on 10/26/16 1736 Omeprazole 20 Mg Capsule.dr, 20 MG PO DAILY Prescribed by: GIGI DAVENPORT on 10/26/20 1633 Ondansetron 4 Mg Tab.rapdis, 4 MG SL Q4H PRN for NAUSEA/VOMITING Prescribed by: GIGI DAVENPORT on 10/26/20 1633 Tramadol HCl 50 Mg Tablet, 50 MG PO Q8H Prescribed by: SHELTON ALVARENGA on 10/26/16 1715 Patient Home Medication List Home Medication List Reviewed: Yes Review of Systems Review of Systems Constitutional: no symptoms reported EENTM: no symptoms reported Respiratory: no symptoms reported Cardiovascular: no symptoms reported Gastrointestinal: see HPI Genitourinary: no symptoms reported Musculoskeletal: see HPI Skin: no symptoms reported Psychiatric/Neurological: See HPI Hematologic/Lymphatic: No Symptoms Reported Immunological/Allergic: no symptoms reported Past Afidmjt-Oielhh-Iegsnx Hx Patient Social History Alcohol Use: Denies Use Smoking Status: Never a Smoker 2nd Hand Smoke Exposure: No Recent Infectious Disease Expo: No Recent Hopitalizations: No Past Medical History Surgeries: Yes Section Respiratory: No Cardiac: No Neurological: No Gastrointestinal: No Musculoskeletal: Yes Arthritis, Rheumatoid Arthritis Endocrine: No HEENT: No Cancer: No Psychosocial: No Blood Disorders: No Physical Exam Vital Signs Vital Signs - First Documented 12/18/20 10:55 Temp 37.1 Pulse 115 Resp 16 B/P (MAP) 161/116 (131) Pulse Ox 96 Capillary Refill : Less Than 3 Seconds Height, Weight, BMI Height: 4'9" Weight: 175lbs. oz. 79.446392uc; 41.00 BMI Method:Stated General Appearance: No Apparent Distress, WD/WN Eyes: Bilateral Eye Normal Inspection, Bilateral Eye PERRL, Bilateral Eye EOMI HEENT: PERRL/EOMI, Normal ENT Inspection, Moist Mucous Membranes Neck: Full Range of Motion, Normal Inspection, Non Tender Respiratory: Lungs Clear, Normal Breath Sounds, No Accessory Muscle Use Cardiovascular: Regular Rate, Rhythm, Normal Peripheral Pulses Gastrointestinal: Normal Bowel Sounds, Non Tender, Soft Rectal: Normal Exam, Hemorrhoids (internal ) Extremity: Normal Capillary Refill, Normal Range of Motion, No Calf Tenderness Neurologic/Psychiatric: Alert, Oriented x3, No Motor/Sensory Deficits, Normal Mood/Affect Skin: Normal Color, Warm/Dry Progress/Results/Core Measures Suspected Sepsis Recent Fever Within 48 Hours: No Infection Criteria Present: None New/Unexplained Altered Menta: No Sepsis Screen: No Definite Risk SIRS Temperature: Pulse: 115 Respiratory Rate: 16 Laboratory Tests 12/18/20 12:30: White Blood Count 8.1 Blood Pressure 161 /116 Mean: 131 Laboratory Tests 12/18/20 12:30: Creatinine 0.68, Platelet Count 381, Total Bilirubin 0.4 Results/Orders Lab Results Laboratory Tests Test 12/18/20 12:12 12/18/20 12:30 Range/Units Urine Color YELLOW Urine Clarity CLEAR Urine pH 7.0 5-9 Urine Specific [place] 1.020 1.016-1.022 Urine Protein NEGATIVE NEGATIVE Urine Glucose (UA) NEGATIVE NEGATIVE Urine Ketones NEGATIVE NEGATIVE Urine Nitrite NEGATIVE NEGATIVE Urine Bilirubin NEGATIVE NEGATIVE Urine Urobilinogen 0.2 < = 1.0 MG/DL Urine Leukocyte Esterase NEGATIVE NEGATIVE Urine RBC (Auto) NEGATIVE NEGATIVE Urine RBC NONE /HPF Urine WBC NONE /HPF Urine Squamous Epithelial Cells 5-10 /HPF Urine Crystals NONE /LPF Urine Bacteria TRACE /HPF Urine Casts NONE /LPF Urine Mucus NEGATIVE /LPF Urine Culture Indicated NO White Blood Count 8.1 4.3-11.0 10^3/uL Red Blood Count 4.90 3.80-5.11 10^6/uL Hemoglobin 14.2 11.5-16.0 g/dL Hematocrit 44 35-52 % Mean Corpuscular Volume 90 80-99 fL Mean Corpuscular Hemoglobin 29 25-34 pg Mean Corpuscular Hemoglobin Concent 32 32-36 g/dL Red Cell Distribution Width 16.1 H 10.0-14.5 % Platelet Count 381 130-400 10^3/uL Mean Platelet Volume 10.1 9.0-12.2 fL Immature Granulocyte % (Auto) 1 % Neutrophils (%) (Auto) 72 42-75 % Lymphocytes (%) (Auto) 21 12-44 % Monocytes (%) (Auto) 4 0-12 % Eosinophils (%) (Auto) 2 0-10 % Basophils (%) (Auto) 0 0-10 % Neutrophils # (Auto) 5.8 1.8-7.8 10^3/uL Lymphocytes # (Auto) 1.7 1.0-4.0 10^3/uL Monocytes # (Auto) 0.4 0.0-1.0 10^3/uL Eosinophils # (Auto) 0.1 0.0-0.3 10^3/uL Basophils # (Auto) 0.0 0.0-0.1 10^3/uL Immature Granulocyte # (Auto) 0.1 0.0-0.1 10^3/uL Erythrocyte Sedimentation Rate 59 H 0-30 MM/HR Sodium Level 142 135-145 MMOL/L Potassium Level 3.4 L 3.6-5.0 MMOL/L Chloride Level 106 98-107 MMOL/L Carbon Dioxide Level 21 21-32 MMOL/L Anion Gap 15 H 5-14 MMOL/L Blood Urea Nitrogen 10 7-18 MG/DL Creatinine 0.68 0.60-1.30 MG/DL Estimat Glomerular Filtration Rate > 60 BUN/Creatinine Ratio 15 Glucose Level 180 H 70-105 MG/DL Calcium Level 8.2 L 8.5-10.1 MG/DL Corrected Calcium 8.8 8.5-10.1 MG/DL Total Bilirubin 0.4 0.1-1.0 MG/DL Aspartate Amino Transf (AST/SGOT) 20 5-34 U/L Alanine Aminotransferase (ALT/SGPT) 20 0-55 U/L Alkaline Phosphatase 115 40-136 U/L C-Reactive Protein High Sensitivity 2.12 H 0.00-0.50 MG/DL Total Protein 7.4 6.4-8.2 GM/DL Albumin 3.2 3.2-4.5 GM/DL My Orders Orders - LORENA CUELLO OBSERVER [employer]PECTING Cbc With Automated Diff (12/18/20 12:20) Comprehensive Metabolic Panel (12/18/20 12:20) Fecal Occult Bedside (12/18/20 12:20) Urinalysis (12/18/20 12:20) Erythrocyte Sedimentation Rate (12/18/20 12:20) Hs C Reactive Protein (12/18/20 12:20) Ribs/Bilat With Chest (12/18/20 12:20) Knee, 3 Views, Bilateral (12/18/20 12:20) Fentanyl Inj (Sublimaze Injection) (12/18/20 12:30) Hydrocodone/Apap 5/325 Tablet (Lortab 5 (12/18/20 13:45) Ketorolac Injection (Toradol Injection) (12/18/20 13:45) Metoprolol Tartrate Injection (Lopressor (12/18/20 14:30) Metoprolol Tartrate Injection (Lopressor (12/18/20 14:14) Medications Given in ED Current Medications Medications Dose Ordered Sig/Bret Route Start Time Stop Time Status Last Admin Dose Admin Acetaminophen/ Hydrocodone Bitart 1 ea ONCE ONCE PO 12/18/20 13:45 12/18/20 13:46 DC 12/18/20 13:47 1 EA Fentanyl Citrate 50 mcg ONCE ONCE IVP 12/18/20 12:30 12/18/20 12:31 DC 12/18/20 12:46 50 MCG Ketorolac Tromethamine 30 mg ONCE ONCE IVP 12/18/20 13:45 12/18/20 13:46 DC 12/18/20 13:47 30 MG Metoprolol Tartrate 5 mg ONCE ONCE IV 12/18/20 14:30 12/18/20 14:31 DC 12/18/20 14:27 5 MG Vital Signs/I&O 12/18/20 12/18/20 10:55 15:22 Temp 37.1 Pulse 115 96 Resp 16 18 B/P (MAP) 161/116 (131) 112/98 Pulse Ox 96 94 Capillary Refill : Less Than 3 Seconds Blood Pressure Mean: 131 Progress Note : Progress Note Patient examined and in mild distress. She is very tearful and had difficult time obtaining HPI. States that her pain is chronic in nature and "will not find anything in labs". However we will go ahead and obtain baseline labs as she appears to be using ibuprofen and Tylenol frequently however is unable to verbalize how often she uses this. She additionally reports some rectal bleeding and itching, orders placed for fecal occult. Labs reviewed and are unremarkable, no elevation in white count, hemoglobin stable. On exam no external hemorrhoids appreciated, however there appears to be palpabale internal hemorrhoid. States that she does not feel that she injured herself from fall however will go ahead and obtain images of bilateral knees and ribs.Orders given for Fentanyl 50 mcg IV push for acute pain. Images show bilateral knee effusion however no ballotment noted on exam. Reports improved pain with fentanyl, will go ahead and give hydrocodone 5/325 mg tablet. Would like her to reduce frequency of Ibuprofen and use hydrocodone for breakthrough pain. Rx provided. She needs to follow up with her PCP on Sunday. Verbalized understanding. Reviewed discharge plan and she is agreeable with plan. Diagnostic Imaging Diagonstic Imaging: Xray Plain Films/CT/US/NM/MRI: knee Comments NAME: ARACELY BALDERAS MED REC#: [id number] PT STATUS: REG ER : 1965 PHYSICIAN: LORENA CUELLO APRN ADMIT DATE: 12/18/20/ER Signed Date of Exam:12/18/20 KNEE, 3 VIEWS, BILATERAL INDICATION: Bilateral knee pain. COMPARISON: None available. TECHNIQUE: 3 views of each knee were obtained. FINDINGS: Large knee joint effusion is present on both sides. No fracture or osseous erosions associated with either knee. Joint spaces are fairly well-preserved. No marginal osteophytes. No mineralized intra-articular bodies. IMPRESSION: 1. No acute osseous abnormality of either knee. 2. Large joint effusions on both sides. Dictated by: Dictated on workstation # [id number] Dict: 12/18/20 1346 Trans: 12/18/20 1352 [facility] [id number] Interpreted by: RORY DONALD MD Electronically signed by: RORY DONALD MD 12/18/20 135 Reviewed: Reviewed by Me Diagonstic Imaging: Xray Plain Films/CT/US/NM/MRI: chest Comments NAME: ARACELY BALDERAS [facility] REC#: [id number] PT STATUS: REG ER : 1965 PHYSICIAN: LORENA CUELLO APRN ADMIT DATE: 12/18/20/ER Signed Date of Exam:12/18/20 RIBS/BILAT WITH CHEST INDICATION: Generalized thoracic pain. COMPARISON: None available. FINDINGS: Lungs are clear. No pleural effusion or pneumothorax. Normal cardiomediastinal silhouette. No appreciable acute or healing fracture within the ribs. Clavicles are intact. No appreciable compression deformity within the thoracic spine. IMPRESSION: 1. No acute cardiopulmonary process. 2. No acute or healing rib fracture on either side. Dictated by: Dictated on workstation # [id number] Dict: 12/18/20 1345 Trans: 12/18/20 1352 [facility] [id number] Interpreted by: RORY DONALD MD Electronically signed by: RORY DONALD MD 12/18/20 1358 Reviewed: Reviewed by Me Departure Impression Primary Impression: Chronic pain Additional Impression: Fall Disposition: HOME, SELF-CARE Condition: Improved Departure-Patient Inst. Decision time for Depature: 14:48 Referrals: NO,LOCAL PHYSICIAN (PCP/Family) Primary Care Physician Patient Instructions: CHRONIC PAIN Add. Discharge Instructions: Plan: 1. Discharge home. 2. Use ice pack 20 minutes at a time 4-6x a day for swelling knee pain. 3. Use sree wraps to reduce knee swelling pain. 4. Take Hydrocodone as needed every 6 hours for breakthrough pain. 5. Follow up with your doctor next week for your high blood pressure. 6. Return for any new or worsening symptoms. All discharge instructions reviewed with patient and/or family. Voiced understanding. Scripts Hydrocodone/Acetaminophen (Hydrocodone-Acetamin 5-325 mg) 1 Each Tablet 1 TAB PO Q6H PRN for PAIN-MODERATE (5-7), #20 TAB 0 Refills Prov: LORENA CUELLO OBSERVER [employer]PECTING 12/18/20 LORENA CUELLO OBSERVER [employer]PECTING Dec 18, 2020 12:27
[2020-12-18 12:30] LABS: BILIRUBIN,URINE NEGATIVE (NEGATIVE); CLARITY,URINE CLEAR; COLOR,URINE YELLOW; GLUCOSE, URINE (UA) NEGATIVE (NEGATIVE); KETONES,URINE NEGATIVE (NEGATIVE); LEUKOCYTE ESTERASE ,URINE NEGATIVE (NEGATIVE); NITRITE,URINE NEGATIVE (NEGATIVE); PROTEIN,URINE NEGATIVE (NEGATIVE)
[2020-12-18] MEDS ORDERED: fentaNYL INJ 100 MCG/2 ML AMP IVP ONE (12:30)
[2020-12-18 12:36] LABS: BASOPHILS % (AUTO) 0 % (0-10); EOSINOPHILS # (AUTO) 0.1 10^3/uL (0.0-0.3); EOSINOPHILS % (AUTO) 2 % (0-10); HEMATOCRIT 44 % (35-52); HEMOGLOBIN 14.2 g/dL (11.5-16.0); LYMPHOCYTES # (AUTO) 1.7 10^3/uL (1.0-4.0); LYMPHOCYTES % (AUTO) 21 % (12-44); MEAN CORPUSCULAR HEMOGLOBIN 29 pg (25-34); MEAN CORPUSCULAR HGB CONC 32 g/dL (32-36); MEAN CORPUSCULAR VOLUME 90 fL (80-99); MEAN PLATELET VOLUME 10.1 fL (9.0-12.2); MONOCYTES # (AUTO) 0.4 10^3/uL (0.0-1.0); MONOCYTES % (AUTO) 4 % (0-12); NEUTROPHILS # (AUTO) 5.8 10^3/uL (1.8-7.8); NEUTROPHILS % (AUTO) 72 % (42-75); PLATELET COUNT 381 10^3/uL (130-400); WHITE BLOOD COUNT 8.1 10^3/uL (4.3-11.0)
[2020-12-18 12:40] LABS: BACTERIA,URINE TRACE /HPF
[2020-12-18 12:56] LABS: ALANINE AMINOTRANSFERASE 20 U/L (0-55); ALBUMIN 3.2 GM/DL (3.2-4.5); ALKALINE PHOSPHATASE 115 U/L (40-136); BILIRUBIN,TOTAL 0.4 MG/DL (0.1-1.0); BUN/CREATININE RATIO 15; CALCIUM 8.2 MG/DL (8.5-10.1); CARBON DIOXIDE 21 MMOL/L (21-32); CHLORIDE 106 MMOL/L (98-107); CREATININE SERUM 0.68 MG/DL (0.60-1.30); GFR ESTIMATED > 60; GLUCOSE 180 MG/DL (70-105); POTASSIUM 3.4 MMOL/L (3.6-5.0); SODIUM 142 MMOL/L (135-145); TOTAL PROTEIN 7.4 GM/DL (6.4-8.2)
[2020-12-18 13:09] LABS: ERYTHROCYTE SEDIMENTATION RATE 59 MM/HR (0-30)
[2020-12-18] MEDS ORDERED: KETOROLAC 30 MG/ML VIAL IVP ONE (13:45)
[2020-12-18] MEDS ORDERED: HYDROcodone/APAP 5 MG/325 MG (LORTAB) TAB PO ONE (13:45)
--- NOTE | 2020-12-18 13:49 | Diagnostic Imaging Report ---
INDICATION: Bilateral knee pain. COMPARISON: None available. TECHNIQUE: 3 views of each knee were obtained. FINDINGS: Large knee joint effusion is present on both sides. No fracture or osseous erosions associated with either knee. Joint spaces are fairly well-preserved. No marginal osteophytes. No mineralized intra-articular bodies. IMPRESSION: 1. No acute osseous abnormality of either knee. 2. Large joint effusions on both sides. Dictated by: Dictated on workstation # [id number]
--- NOTE | 2020-12-18 13:50 | Diagnostic Imaging Report ---
INDICATION: Generalized thoracic pain. COMPARISON: None available. FINDINGS: Lungs are clear. No pleural effusion or pneumothorax. Normal cardiomediastinal silhouette. No appreciable acute or healing fracture within the ribs. Clavicles are intact. No appreciable compression deformity within the thoracic spine. IMPRESSION: 1. No acute cardiopulmonary process. 2. No acute or healing rib fracture on either side. Dictated by: Dictated on workstation # [id number]
[2020-12-18] MEDS ORDERED: meTOprolol 5 MG/5 ML (LOPRESSOR) VIAL ONE (14:14)
[2020-12-18] MEDS ORDERED: meTOprolol 5 MG/5 ML (LOPRESSOR) VIAL IV ONE (14:30)
[2020-12-18] MEDS ORDERED: ACHD5005 PO (14:50)
[2020-12-18 15:22] VITALS: BP 112/98
== END 2020-12-18 15:51 | disposition home or self-care (01) ==
LOC: EDUNIT# 10:51 → ER 10:54
DX: G89.29 Other chronic pain (principal); Z79.52 Long term (current) use of systemic steroids
CPT/HCPCS: 36415; 71111; 80053; 81000; 85025; 85652; 86141

== ENCOUNTER 2020-12-29 14:07 | Emergency (ER) | payer MEDICAID ==
[~2020-12-29] VITALS: Ht 127 cm; Wt 81.6 kg
[2020-12-29] MEDS ORDERED: oxyCODONE/APAP 5/325MG (PERCOCET 5) TABLET PO ONE (14:45)
[2020-12-29] MEDS ORDERED: BUPIVACAINE 0.5% 30 ML (SENSORCAINE) VIAL INJ ONE (14:45)
[2020-12-29] MEDS ORDERED: TRIAMCINOLONE ACET (KENALOG-40) 40 MG/ML 1 ML VIAL IA ONE (14:45)
[2020-12-29] MEDS ORDERED: oxyCODONE/APAP 7.5-325 MG (PERCOCET 7.5) TABLET PO ONE (14:45)
[2020-12-29] MEDS ORDERED: BUPIVACAINE 0.25% 30 ML (SENSORCAINE) VIAL INJ ONE (14:45)
[2020-12-29] MEDS ORDERED: methylPREDNISolone 125 MG (Solu-MEDROL) VIAL IVP ONE (14:45)
[2020-12-29 14:50] LABS: BASOPHILS # (AUTO) 0.1 10^3/uL (0.0-0.1); BASOPHILS % (AUTO) 0 % (0-10); EOSINOPHILS # (AUTO) 0.1 10^3/uL (0.0-0.3); EOSINOPHILS % (AUTO) 1 % (0-10); HEMATOCRIT 45 % (35-52); HEMOGLOBIN 14.1 g/dL (11.5-16.0); LYMPHOCYTES # (AUTO) 1.5 X 10^3 (1.0-4.0); LYMPHOCYTES % (AUTO) 13 % (12-44); MEAN CORPUSCULAR HEMOGLOBIN 28 pg (25-34); MEAN CORPUSCULAR HGB CONC 31 g/dL (32-36); MEAN CORPUSCULAR VOLUME 90 fL (80-99); MEAN PLATELET VOLUME 9.6 fL (9.0-12.2); MONOCYTES # (AUTO) 0.4 X 10^3 (0.0-1.0); MONOCYTES % (AUTO) 3 % (0-12); NEUTROPHILS # (AUTO) 9.2 X 10^3 (1.8-7.8); NEUTROPHILS % (AUTO) 81 % (42-75); PLATELET COUNT 565 10^3/uL (130-400); WHITE BLOOD COUNT 11.4 10^3/uL (4.3-11.0)
[2020-12-29 15:00] LABS: CHLORIDE 103 MMOL/L (98-107); POTASSIUM 3.8 MMOL/L (3.6-5.0); SODIUM 137 MMOL/L (135-145)
[2020-12-29 15:01] LABS: CALCIUM 9.3 MG/DL (8.5-10.1)
[2020-12-29 15:02] LABS: GLUCOSE 185 MG/DL (70-105)
[2020-12-29 15:04] LABS: CARBON DIOXIDE 24 MMOL/L (21-32)
[2020-12-29] MEDS ORDERED: METH4TAB10 PO (15:04)
[2020-12-29] MEDS ORDERED: OXYC1TAB87 PO (15:04)
[2020-12-29] MEDS ORDERED: CEPH500T PO (15:04)
--- NOTE | 2020-12-29 15:05 | ED Lower Extremity ---
General Chief Complaint: Lower Extremity Stated Complaint: KNEE PAIN Nursing Triage Note: PT TO ROOM 05 WITH C/O CHRONIC BILAT KNEE PAIN. PT REPORTS HX OF RA AND THAT THE PAIN IS WORSE TODAY. PT REPORTS THAT SHE CANNOT PERFORM ADLS AND HAS NO ONE IN THE HOME TO ASSIST HER. LANGUAGE LINE USED FOR TRANSLATION. Nursing Sepsis Screen: No Definite Risk Source: patient, claim examiner Exam Limitations: no limitations History of Present Illness Date Seen by Provider: December 29, 2020 Time Seen by Provider: 14:35 Initial Comments To ER by private vehicle with reports of ongoing intolerable bilateral knee pain. She has had this her whole life. She has known rheumatoid arthritis. She used to take methotrexate for this but lost her insurance. She denies fevers chills or injury. She also has pain, albeit to a lesser degree, of shoulders elbows and wrists. Onset: just prior to arrival Severity: moderate Pain/Injury Location: bilateral knee Method of Injury: unknown Modifying Factors: Worse With Movement Allergies and Home Medications Allergies Coded Allergies: No Known Drug Allergies (Unverified , 04/05/09) Home Medications Adalimumab 10 Mg/0.2 Ml Syringekit, 10 MG SQ Q 2 WEEKS, (Reported) Cephalexin 500 Mg Tablet, 500 MG PO TID Prescribed by: SIVA LA on 12/29/20 1504 Hydrocodone/Acetaminophen 1 Each Tablet, 1 EACH PO Q4H PRN for PAIN-MODERATE (5- 7) Prescribed by: SIVA LA on 08/09/20 1454 Hydrocodone/Acetaminophen 1 Each Tablet, 1 TAB PO Q6H PRN for PAIN-MODERATE (5- 7) Prescribed by: LORENA CUELLO on 12/18/20 1450 Methylprednisolone 4 Mg Tab.ds.pk, 4 MG PO UD PER DOSE PACK INSTRUCTIONS Prescribed by: SIVA LA on 08/09/20 1452 Methylprednisolone 4 Mg Tab.ds.pk, 4 MG PO UD PER DOSE PACK INSTRUCTIONS Prescribed by: SIVA LA on 12/29/20 1504 Naproxen 500 Mg Tablet, 500 MG PO BID WITH MEALS PRN for PAIN Prescribed by: SHELTON ALVARENGA on 10/26/16 1736 Omeprazole 20 Mg Capsule.dr, 20 MG PO DAILY Prescribed by: GIGI DAVENPORT on 10/26/20 1633 Ondansetron 4 Mg Tab.rapdis, 4 MG SL Q4H PRN for NAUSEA/VOMITING Prescribed by: GIGI DAVENPORT on 10/26/20 1633 Oxycodone HCl/Acetaminophen 1 Each Tablet, 1 TAB PO Q4H Prescribed by: SIVA LA on 12/29/20 1505 Tramadol HCl 50 Mg Tablet, 50 MG PO Q8H Prescribed by: SHELTON ALVARENGA on 10/26/16 1715 Patient Home Medication List Home Medication List Reviewed: Yes Review of Systems Constitutional: see HPI; No chills, No fever EENTM: see HPI Respiratory: no symptoms reported Cardiovascular: no symptoms reported Genitourinary: no symptoms reported Musculoskeletal: see HPI Skin: no symptoms reported Past Rfyuizg-Bymkza-Yuvmat Hx Patient Social History Alcohol Use: Denies Use Smoking Status: Never a Smoker 2nd Hand Smoke Exposure: No Recent Infectious Disease Expo: No Recent Hopitalizations: No Past Medical History Surgeries: Yes Section Respiratory: No Cardiac: No Neurological: No Gastrointestinal: No Musculoskeletal: Yes Arthritis, Rheumatoid Arthritis Endocrine: No HEENT: No Cancer: No Psychosocial: No Blood Disorders: No Physical Exam Vital Signs Vital Signs - First Documented 12/29/20 14:14 Temp 36.7 Pulse 119 Resp 20 O2 Delivery Room Air Capillary Refill : Less Than 3 Seconds Height, Weight, BMI Height: 4'9" Weight: 175lbs. oz. 79.970234uk; 50.00 BMI Method:Stated General Appearance: WD/WN, no apparent distress Respiratory: no respiratory distress, no accessory muscle use Hips: bilateral hip non-tender, bilateral hip normal inspection, bilateral hip normal range of motion Legs: bilateral leg non-tender, bilateral leg normal inspection, bilateral leg normal range of motion Knees: bilateral knee other (Minor palpable effusion to both sides, overlying skin is normal.) Ankles: bilateral ankle non-tender, bilateral ankle normal inspection, bilateral ankle normal range of motion Neurologic/Psychiatric: alert, normal mood/affect, oriented x 3 Skin: normal color, warm/dry Progress/Results/Core Measures Results/Orders Lab Results Laboratory Tests Test 12/29/20 14:33 12/29/20 14:35 Range/Units White Blood Count 11.4 H 4.3-11.0 10^3/uL Red Blood Count 5.02 3.80-5.11 10^6/uL Hemoglobin 14.1 11.5-16.0 g/dL Hematocrit 45 35-52 % Mean Corpuscular Volume 90 80-99 fL Mean Corpuscular Hemoglobin 28 25-34 pg Mean Corpuscular Hemoglobin Concent 31 L 32-36 g/dL Red Cell Distribution Width 16.1 H 10.0-14.5 % Platelet Count 565 H 130-400 10^3/uL Mean Platelet Volume 9.6 9.0-12.2 fL Immature Granulocyte % (Auto) 1 % Neutrophils (%) (Auto) 81 H 42-75 % Lymphocytes (%) (Auto) 13 12-44 % Monocytes (%) (Auto) 3 0-12 % Eosinophils (%) (Auto) 1 0-10 % Basophils (%) (Auto) 0 0-10 % Neutrophils # (Auto) 9.2 H 1.8-7.8 X 10^3 Lymphocytes # (Auto) 1.5 1.0-4.0 X 10^3 Monocytes # (Auto) 0.4 0.0-1.0 X 10^3 Eosinophils # (Auto) 0.1 0.0-0.3 10^3/uL Basophils # (Auto) 0.1 0.0-0.1 10^3/uL Immature Granulocyte # (Auto) 0.1 0.0-0.1 10^3/uL Erythrocyte Sedimentation Rate 3 0-30 MM/HR Sodium Level 137 135-145 MMOL/L Potassium Level 3.8 3.6-5.0 MMOL/L Chloride Level 103 98-107 MMOL/L Carbon Dioxide Level 24 21-32 MMOL/L Anion Gap 10 5-14 MMOL/L Blood Urea Nitrogen 12 7-18 MG/DL Creatinine 0.86 0.60-1.30 MG/DL Estimat Glomerular Filtration Rate > 60 BUN/Creatinine Ratio 14 Glucose Level 185 H 70-105 MG/DL Calcium Level 9.3 8.5-10.1 MG/DL C-Reactive Protein High Sensitivity 10.65 H 0.00-0.50 MG/DL My Orders Orders - SIVA LA APRN Erythrocyte Sedimentation Rate (12/29/20 14:32) Hs C Reactive Protein (12/29/20 14:32) Cbc With Automated Diff (12/29/20 14:32) Basic Metabolic Panel (12/29/20 14:32) Body Fluid Cell Count (12/29/20 14:32) Body Fluid Culture (12/29/20 14:32) Crystals,Body Fluid (12/29/20 14:32) Methylprednisolone Sod Succ (Solu-Medrol (12/29/20 14:45) Triamcinolone Acetonide Im (Kenalog-40) (12/29/20 14:45) Bupivacaine 0.5% Injection (Sensorcaine (12/29/20 14:45) Bupivacaine 0.25% Injection (Sensorcaine (12/29/20 14:45) Oxycodone/Apap 7.5/325mg Tab (Percocet (12/29/20 14:45) Oxycodone/Apap 5/325mg Tablet (Percocet (12/29/20 14:45) Medications Given in ED Current Medications Medications Dose Ordered Sig/Bret Route Start Time Stop Time Status Last Admin Dose Admin Bupivacaine HCl 30 ml ONCE ONCE INJ 12/29/20 14:45 12/29/20 14:46 DC 12/29/20 14:47 30 ML Methylprednisolone Sodium Succinate 125 mg ONCE ONCE IVP 12/29/20 14:45 12/29/20 14:46 DC 12/29/20 14:46 125 MG Oxycodone/ Acetaminophen 1 tab ONCE ONCE PO 12/29/20 14:45 12/29/20 14:46 DC 12/29/20 14:46 1 TAB Triamcinolone Acetonide 40 mg ONCE ONCE IA 12/29/20 14:45 12/29/20 14:46 DC 12/29/20 14:47 40 MG Vital Signs/I&O 12/29/20 14:14 Temp 36.7 Pulse 119 Resp 20 B/P (MAP) O2 Delivery Room Air Departure Communication (Admissions) Good bilateral knee injections. 1 cm superior and 1 cm lateral to the patella was identified on each side. This area was marked with a skin pen and then scrubbed with Betadine swabs x3 which were allowed to dry. Tract was then anesthetized using a 27-gauge needle on a 3 cc syringe with bupivacaine. This was without epinephrine. This was done on both sides. About 1 to 2 mL of fluid was aspirated off the left knee for culture. This was sent to the lab. Each knee was then injected with a total of 5 mL of bupivacaine 0.5% without epinephrine with 20 mg of Kenalog on each side. 1540-using a surgeon chief patient reports that she feels much better at this time. We will discharge. Impression Primary Impression: Rheumatoid arthritis Disposition: HOME, SELF-CARE Condition: Stable Departure-Patient Inst. Decision time for Depature: 15:03 Referrals: NO,LOCAL PHYSICIAN (PCP/Family) Primary Care Physician Patient Instructions: Rheumatoid Arthritis Add. Discharge Instructions: 1. Return to ER for any concerns. Take the steroids and antibiotic as directed. All discharge instructions reviewed with patient and/or family. Voiced understan devang. Scripts Cephalexin (Cephalexin) 500 Mg Tablet 500 MG PO TID, #15 TAB Prov: SIVA LA APRN 12/29/20 Methylprednisolone (Methylprednisolone Dose Pack) 4 Mg Tab.ds.pk 4 MG PO UD for 6 Days, #21 PKG PER DOSE PACK INSTRUCTIONS Prov: SIVA LA APRN 12/29/20 Oxycodone HCl/Acetaminophen (Percocet 5-325 mg Tablet) 1 Each Tablet 1 TAB PO Q4H for PAIN-MODERATE MDD 6 TABS for 7 Days, #20 TAB Prov: SIVA LA APRN 12/29/20 SIVA LA APRN December 29, 2020 15:05
[2020-12-29 15:06] LABS: CREATININE SERUM 0.86 MG/DL (0.60-1.30); GFR ESTIMATED > 60
[2020-12-29 15:07] LABS: BUN/CREATININE RATIO 14
[2020-12-29 15:08] LABS: ERYTHROCYTE SEDIMENTATION RATE 3 MM/HR (0-30)
[2020-12-29 15:54] VITALS: BP 127/77
[2020-12-29 16:24] LABS: BODY FLUID APPEARENCE MOD CLDY; BODY FLUID COLOR YELLOW; BODY FLUID RBC COUNT 17975 /uL; BODY FLUID SOURCE SYNOVIAL; BODY FLUID WBC TOTAL COUNT 15550 /uL
[2020-12-29 16:42] LABS: BF OTHER CELLS 0 %; LYMPHOCYTES,BODY FLUID 11 %
== END 2020-12-29 15:54 | disposition home or self-care (01) ==
LOC: EDUNIT# 14:07 → ER 14:08
DX: M06.9 Rheumatoid arthritis, unspecified (principal); Z79.52 Long term (current) use of systemic steroids
CPT/HCPCS: 36415; 80048; 85025; 85652; 86141; 87070; 87205; 89051; 89060; 99283

== ENCOUNTER 2021-01-30 15:08 | Emergency (ER) | payer MEDICAID ==
[~2021-01-30] VITALS: Ht 152 cm; Wt 79.0 kg
[~2021-01-30 15:08] MED LIST changes: +CEPH500T PO; +OXYC1TAB87 PO
[2021-01-30 15:45] VITALS: BP 114/83
--- NOTE | 2021-01-30 16:04 | ED General ---
General Chief Complaint: General Problems/Pain Stated Complaint: SWELLING Nursing Triage Note: ARRIVED VIA WC TO ROOM 06 WITH COMPLAINTS OF PAIN ALL OVER DUE TO RHUMATOID ARTHRITIS. Nursing Sepsis Screen: No Definite Risk Source of Information: Patient Exam Limitations: No Limitations (SIVA LA APRN) History of Present Illness Date Seen by Provider: Jan 30, 2021 Time Seen by Provider: 16:03 Initial Comments To ER by private vehicle with reports of swelling and pain in her hands which prevents her from doing many household activities. She denies fevers chills or injury. She has known rheumatoid arthritis. I seen her 3 times for exacerbations of this. She does not take anything to manage this routinely. She states that her daughter thinks she is crazy and kicked her out of the house a few weeks ago. She was formerly on Humira. Timing/Duration: Getting Worse Severity: Moderate Associated Systoms: Denies Symptoms (SIVA LA APRN) Allergies and Home Medications Allergies Coded Allergies: No Known Drug Allergies (Unverified , 04/05/09) Home Medications Adalimumab 10 Mg/0.2 Ml Syringekit, 10 MG SQ Q 2 WEEKS, (Reported) Cephalexin 500 Mg Tablet, 500 MG PO TID Prescribed by: SIVA LA on 12/29/20 1504 Hydrocodone/Acetaminophen 1 Each Tablet, 1 EACH PO Q4H PRN for PAIN-MODERATE (5- 7) Prescribed by: SIVA LA on 08/09/20 1454 Hydrocodone/Acetaminophen 1 Each Tablet, 1 TAB PO Q6H PRN for PAIN-MODERATE (5- 7) Prescribed by: LORENA CUELLO on 12/18/20 1450 Hydroxychloroquine Sulfate 200 Mg Tablet, 200 MG PO BID Prescribed by: SIVA LA on 01/30/21 1607 Methylprednisolone 4 Mg Tab.ds.pk, 4 MG PO UD PER DOSE PACK INSTRUCTIONS Prescribed by: SIVA LA on 08/09/20 1452 Methylprednisolone 4 Mg Tab.ds.pk, 4 MG PO UD PER DOSE PACK INSTRUCTIONS Prescribed by: SIVA LA on 12/29/20 1504 Naproxen 500 Mg Tablet, 500 MG PO BID WITH MEALS PRN for PAIN Prescribed by: SHELTON ALVARENGA on 10/26/16 1736 Omeprazole 20 Mg Capsule.dr, 20 MG PO DAILY Prescribed by: GIGI DAVENPORT on 10/26/20 1633 Ondansetron 4 Mg Tab.rapdis, 4 MG SL Q4H PRN for NAUSEA/VOMITING Prescribed by: GIGI DAVENPORT on 10/26/20 1633 Oxycodone HCl/Acetaminophen 1 Each Tablet, 1 TAB PO Q4H Prescribed by: SIVA LA on 12/29/20 1505 Oxycodone HCl/Acetaminophen 1 Each Tablet, 1 TAB PO Q4H Prescribed by: SIVA LA on 01/30/21 1607 Tramadol HCl 50 Mg Tablet, 50 MG PO Q8H Prescribed by: SHELTON ALVARENGA on 10/26/16 1715 Patient Home Medication List Home Medication List Reviewed: Yes (SIVA LA APRN) Review of Systems Review of Systems Constitutional: see HPI EENTM: see HPI Respiratory: no symptoms reported Cardiovascular: see HPI Genitourinary: no symptoms reported Musculoskeletal: no symptoms reported Skin: no symptoms reported Psychiatric/Neurological: No Symptoms Reported Hematologic/Lymphatic: No Symptoms Reported (SIVA LA APRN) Past Jgbzpzm-Yfilau-Gsbjdm Hx Patient Social History 2nd Hand Smoke Exposure: No Recent Infectious Disease Expo: No Recent Hopitalizations: No (SIVA LA APRN) Past Medical History Surgeries: Yes Section Respiratory: No Cardiac: No Neurological: No Gastrointestinal: No Musculoskeletal: Yes Arthritis, Rheumatoid Arthritis Endocrine: No HEENT: No Cancer: No Psychosocial: No Blood Disorders: No (SIVA LA APRN) Physical Exam Vital Signs Vital Signs - First Documented 01/30/21 15:45 Temp 37.4 Pulse 114 Resp 18 B/P (MAP) 114/83 (93) Pulse Ox 96 O2 Delivery Room Air (GIGI SLATER MD) Vital Signs Capillary Refill : Less Than 3 Seconds (SIVA LA APRN) Height, Weight, BMI Height: 4'9" Weight: 175lbs. oz. 79.288091ub; 34.00 BMI Method:Stated General Appearance: No Apparent Distress, WD/WN, Other (Tearful during most of the visit related to pain in her right knee right shoulder fingers and wrists bilaterally. These joints are enlarged and there are palpable knee effusions bilaterally.) Eyes: Bilateral Eye Normal Inspection, Bilateral Eye PERRL, Bilateral Eye EOMI Respiratory: No Accessory Muscle Use, No Respiratory Distress Gastrointestinal: Normal Bowel Sounds, Non Tender, Soft Extremity: Normal Capillary Refill, Other Neurologic/Psychiatric: Alert, Oriented x3 Skin: Normal Color, Warm/Dry (SIVA LA APRN) Progress/Results/Core Measures Suspected Sepsis Recent Fever Within 48 Hours: No Infection Criteria Present: None New/Unexplained Altered Menta: No Sepsis Screen: No Definite Risk SIRS Temperature: Pulse: 114 Respiratory Rate: 18 Blood Pressure 114 /83 Mean: 93 (SIVA LA APRN) Results/Orders Vital Signs/I&O 01/30/21 15:45 Temp 37.4 Pulse 114 Resp 18 B/P (MAP) 114/83 (93) Pulse Ox 96 O2 Delivery Room Air (GIGI SLATER MD) Vital Signs/I&O Capillary Refill : Less Than 3 Seconds (SIVA LA APRN) Blood Pressure Mean: 93 Departure Impression Primary Impression: Rheumatoid arthritis Disposition: HOME, SELF-CARE Condition: Stable Departure-Patient Inst. Decision time for Depature: 16:05 (SIVA LA APRN) Referrals: NO,LOCAL PHYSICIAN (PCP/Family) Primary Care Physician Patient Instructions: Rheumatoid Arthritis Add. Discharge Instructions: 1. Follow-up with primary care. Return to ER for any concerns. All discharge instructions reviewed with patient and/or family. Voiced understanding. Scripts Oxycodone HCl/Acetaminophen (Percocet 5-325 mg Tablet) 1 Each Tablet 1 TAB PO Q4H for PAIN-MODERATE MDD 6 TABS for 7 Days, #20 TAB Prov: SIVA LA APRN 01/30/21 Hydroxychloroquine Sulfate (Plaquenil) 200 Mg Tablet 200 MG PO BID, #60 TAB Prov: SIVA LA APRN 01/30/21 Attending Physician Note: I was physically present in the emergency department as attending physician during the care of this patient, but I was not directly involved in this patient's care. (GIGI SLATER MD) SIVA LA APRN Jan 30, 2021 16:03 GIGI SLATER MD Jan 31, 2021 10:05
[2021-01-30] MEDS ORDERED: HYDR200T78 PO (16:07)
[2021-01-30] MEDS ORDERED: OXYC1TAB87 PO (16:07)
[2021-01-30] MEDS ORDERED: oxyCODONE/APAP 5/325MG (PERCOCET 5) TABLET PO ONE (16:15)
== END 2021-01-30 16:17 | disposition home or self-care (01) ==
LOC: EDUNIT# 15:08 → ER 15:10
DX: M06.9 Rheumatoid arthritis, unspecified (principal); Z79.52 Long term (current) use of systemic steroids
CPT/HCPCS: 99284